=== PATIENT | female | born 1965 | race Caucasian/White ===

== ENCOUNTER 2022-10-14 05:41 | Inpatient (IN) | payer MEDICARE ==
[2022-10-09 11:04] LABS: ANION GAP 17.9 mmol/L (8-16); CALCIUM 8.8 mg/dL (8.4-10.2); CREATININE, SERUM 0.71 mg/dL (0.57-1.11); POTASSIUM 3.9 mmol/L (3.5-5.1)
[2022-10-14] VITALS (8 sets, daily range): BP systolic 136–162; BP diastolic 74–102; PULSE 76–91; RESP 16–20; TEMP 98.1–98.7; O2SAT 95–97
[~2022-10-14] VITALS: Ht 162.6 cm; Wt 89.4 kg
[~2022-10-14 05:41] MED LIST: LEVOTHYROXINE112 MCG PO; LISINOPRIL10 MG PO; METFORMIN HCL500 MG PO; OZEMPIC0.25 MG/0. SC; VITAMIN D31 ML
[2022-10-14] MEDS ORDERED: LACTATED RINGER'S 1,000 ML ONE (05:51)
[2022-10-14] MEDS ORDERED: CEFAZOLIN SODIUM 2 GM ONE (05:51)
[2022-10-14] MEDS ORDERED: SCOPOLAMINE 1 MG PATCH TOP SCH (07:15)
[2022-10-14] MEDS ORDERED: HYDROMORPHONE 1MG/1ML INJ ONE ×4 (07:16→11:15)
[2022-10-14] MEDS ORDERED: ACETAMINOPHEN 1000 MG/100 ML 100 ML IV ONE ×2 (07:16→11:28)
[2022-10-14] MEDS ORDERED: FIBRIN FROZEN 2 ML SPRAY.GEL TOP ONE (07:30)
[2022-10-14] MEDS ORDERED: BUPIVACAINE 0.25% 30ML SDV ONE (07:33)
[2022-10-14] MEDS ORDERED: SCOPOLAMINE 1 MG PATCH TOP ONE (10:43)
[2022-10-14] MEDS ORDERED: SCOPOLAMINE 1 MG PATCH ONE (10:43)
[2022-10-14] MEDS ORDERED: HYDROMORPHONE 1MG/1ML INJ IV ONE (10:47)
[2022-10-14] MEDS ORDERED: ONDANSETRON HCL INJ 2MG/ML 2ML 2 MG/ML VIAL ONE ×2 (10:58→15:45)
[2022-10-14] MEDS ORDERED: ONDANSETRON HCL INJ 2MG/ML 2ML 2 MG/ML VIAL IV ONE (10:58)
[2022-10-14] MEDS: LACTATED RINGER'S 1,000 ML IV SCH ×3 (12:30→20:21)
[2022-10-14] MEDS: ONDANSETRON HCL INJ 2MG/ML 2ML 2 MG/ML VIAL IV PRN ×2 (12:30→22:01)
[2022-10-14] MEDS: Morphine 2mg Syringe 2 MG/ML SYR IV PRN ×2 (12:31→15:39)
[2022-10-14] MEDS: HYDROCODONE/APAP 7.5MG-325MG 1 EA TAB PO PRN ×2 (12:31→16:42)
[2022-10-14] MEDS ORDERED: ROPIVACAINE 0.5% 5 MG/ML 30 ML SDV ONE (12:55)
[2022-10-14] MEDS ORDERED: MIDAZOLAM HCL 2 MG/2 ML VIAL ONE (13:58)
[2022-10-14] MEDS ORDERED: FENTANYL CITRATE/PF 100MCG/2 ML INJ ONE (13:58)
[2022-10-14] MEDS ORDERED: LIDOCAINE HCL 2% LOCAL INJ 5 ML SDV VIAL INJ ONE (15:45)
[2022-10-14] MEDS ORDERED: ROCURONIUM BROMIDE 10 MG/ML 5ML VIAL IV ONE (15:45)
[2022-10-14] MEDS ORDERED: SEVOFLURANE INHAL SOLN 250 ML PEN BTL ONE (15:45)
[2022-10-14] MEDS ORDERED: PROPOFOL IV EMULSION 10 MG/ML 20 ML VIAL ONE (15:45)
[2022-10-14] MEDS ORDERED: POVIDONE IODINE 0.05% 0.05 % ML PO ONE (15:45)
[2022-10-14] MEDS ORDERED: DEXTROSE 50% SYRINGE 50 ML IV PRN (16:15)
[2022-10-14] MEDS: LISINOPRIL 20 MG TAB PO SCH (16:42)
[2022-10-14] MEDS: HYDROMORPHONE 1MG/1ML INJ IV PRN ×2 (16:46→22:01)
[2022-10-14] MEDS: INSULIN LISPRO 100 UNIT/1 ML 3ML VIAL SQ SCH ×2 (16:58→20:25)
[2022-10-14] MEDS: ENOXAPARIN SOD INJ 40 MG/0.4 ML SYR SC SCH (20:20)
[2022-10-15] VITALS (8 sets, daily range): BP systolic 139–149; BP diastolic 78–92; PULSE 70–87; RESP 17–21; TEMP 97.9–99.5; O2SAT 95–100
[2022-10-15 04:44] LABS: BASOPHILS # (AUTO) 0.1 (0.0-0.1); BASOPHILS % 0.4 % (0.0-1.0); EOSINOPHILS % 0.1 % (0.0-6.0); HEMATOCRIT 40.7 % (34.2-44.1); HEMOGLOBIN 13.3 g/dL (12.0-16.0); LYMPHOCYTES # (AUTO) 2.6 (1.0-3.2); LYMPHOCYTES % 18.7 % (18.0-39.1); MEAN CORPUSCULAR HEMOGLOBIN 30.2 pg (28-32); MEAN CORPUSCULAR HGB CONC 32.7 g/dL (31-35); MEAN CORPUSCULAR VOLUME 92.3 fL (81-99); MONOCYTES # (AUTO) 1.5 (0.2-0.8); MONOCYTES % 10.9 % (4.4-11.3); NEUTROPHILS # (AUTO) 9.8 (2.1-6.9); NEUTROPHILS % 69.3 % (38.7-80.0); PLATELET COUNT 258 x10e3/uL (140-360); RED BLOOD COUNT 4.41 x10e6/uL (3.6-5.1); RED CELL DISTRIBUTION WIDTH 12.4 % (11.7-14.4)
[2022-10-15] MEDS: LACTATED RINGER'S 1,000 ML IV SCH ×3 (04:48→18:04)
[2022-10-15 05:10] LABS: ALBUMIN 3.5 g/dL (3.5-5.0); ALBUMIN/GLOBULIN RATIO 1.1 (0.8-2.0); CALCIUM 8.8 mg/dL (8.4-10.2); CREATININE, SERUM 0.71 mg/dL (0.57-1.11); MAGNESIUM 1.8 MG/DL (1.3-2.1)
[2022-10-15] MEDS: LEVOTHYROXINE SODIUM 25 MCG TABLET PO SCH (06:14)
[2022-10-15] MEDS: LEVOTHYROXINE SODIUM 112 MCG TAB PO SCH (06:14)
[2022-10-15] MEDS: INSULIN LISPRO 100 UNIT/1 ML 3ML VIAL SQ SCH ×4 (07:30→20:29)
[2022-10-15] MEDS: LISINOPRIL 20 MG TAB PO SCH (08:07)
[2022-10-15] MEDS: ENOXAPARIN SOD INJ 40 MG/0.4 ML SYR SC SCH ×2 (08:07→20:36)
[2022-10-15] MEDS: HYDROCODONE/APAP 7.5MG-325MG 1 EA TAB PO PRN ×3 (08:20→18:03)
[2022-10-15] MEDS ORDERED: LEVOTHYROXINE SODIUM 112 MCG TAB PO SCH (09:00)
[2022-10-15 10:22] LABS: CLARITY,URINE CLEAR (CLEAR); COLOR,URINE YELLOW (YELLOW); KETONES,URINE 1+ (NEGATIVE); LEUKOCYTE ESTERASE ,URINE NEGATIVE (NEGATIVE); NITRITE,URINE NEGATIVE (NEGATIVE); PROTEIN,URINE DIPSTICK NEGATIVE (NEGATIVE); URINE UROBILINOGEN 0.2 mg/dL (0.2 - 1)
[2022-10-15 10:29] LABS: EPITHELIAL CELLS,URINE RARE /LPF
[2022-10-15 10:30] LABS: BACTERIA,URINE RARE /HPF; RBC,URINE 0-5 /HPF (0-5); WBC,URINE (MAN) 0-5 /HPF (0-5)
[2022-10-15] MEDS: ONDANSETRON HCL INJ 2MG/ML 2ML 2 MG/ML VIAL IV PRN ×2 (16:30→22:28)
[2022-10-15] MEDS: HYDROMORPHONE 1MG/1ML INJ IV PRN ×2 (16:30→22:28)
[2022-10-16] MEDS: HYDROCODONE/APAP 7.5MG-325MG 1 EA TAB PO PRN ×3 (01:42→09:52)
[2022-10-16] MEDS: LACTATED RINGER'S 1,000 ML IV SCH (02:36)
[2022-10-16 04:39] VITALS: BP 149/77; PULSE 77; RESP 18; TEMP 98.9; O2SAT 96
[2022-10-16 04:51] LABS: BASOPHILS % 0.3 % (0.0-1.0); EOSINOPHILS % 0.2 % (0.0-6.0); HEMATOCRIT 35.9 % (34.2-44.1); HEMOGLOBIN 11.8 g/dL (12.0-16.0); LYMPHOCYTES # (AUTO) 2.8 (1.0-3.2); LYMPHOCYTES % 22.9 % (18.0-39.1); MEAN CORPUSCULAR HEMOGLOBIN 29.6 pg (28-32); MEAN CORPUSCULAR HGB CONC 32.9 g/dL (31-35); MONOCYTES # (AUTO) 1.1 (0.2-0.8); MONOCYTES % 9.1 % (4.4-11.3); NEUTROPHILS # (AUTO) 8.2 (2.1-6.9); NEUTROPHILS % 67.2 % (38.7-80.0); PLATELET COUNT 246 x10e3/uL (140-360); RED BLOOD COUNT 3.99 x10e6/uL (3.6-5.1); RED CELL DISTRIBUTION WIDTH 12.5 % (11.7-14.4)
[2022-10-16 05:14] LABS: ALBUMIN 3.3 g/dL (3.5-5.0); ANION GAP 11.6 mmol/L (8-16); CALCIUM 8.7 mg/dL (8.4-10.2); CREATININE, SERUM 0.65 mg/dL (0.57-1.11); POTASSIUM 3.6 mmol/L (3.5-5.1)
[2022-10-16] MEDS: LEVOTHYROXINE SODIUM 25 MCG TABLET PO SCH (05:54)
[2022-10-16] MEDS: LEVOTHYROXINE SODIUM 112 MCG TAB PO SCH (05:54)
[2022-10-16 06:19] VITALS: PULSE 70; RESP 16; O2SAT 98
[2022-10-16] MEDS: INSULIN LISPRO 100 UNIT/1 ML 3ML VIAL SQ SCH (07:30)
[2022-10-16] MEDS: ENOXAPARIN SOD INJ 40 MG/0.4 ML SYR SC SCH (09:09)
[2022-10-16] MEDS: LISINOPRIL 20 MG TAB PO SCH (09:10)
[2022-10-16 09:17] VITALS: BP 145/86; PULSE 82; RESP 18; TEMP 98; O2SAT 95
[2022-10-16 09:19] VITALS: BP 145/86; PULSE 82; RESP 18; TEMP 98; O2SAT 95
[2022-10-16] MEDS ORDERED: ONDANSETRON HCL 4 MG ORAL DISINTEGRATING TAB PO PRN (14:00)
== END 2022-10-16 10:30 | disposition home or self-care (01) | DRG 621 ==
LOC: OR 05:41 → PACU V 09:02 → MED/SURG 11:45
PROVIDERS: ADMIT Internal Medicine; ATTEND Internal Medicine
PROC: 0DP64CZ Removal of Extraluminal Device from Stomach, Percutaneous Endoscopic Approach (ICD-10-PCS; 2022-10-14)
PROC: 0DNW4ZZ Release Peritoneum, Percutaneous Endoscopic Approach (ICD-10-PCS; 2022-10-14)
PROC: 0D164ZA Bypass Stomach to Jejunum, Percutaneous Endoscopic Approach (ICD-10-PCS; principal; 2022-10-14 07:42)
DX: E66.01 Morbid (severe) obesity due to excess calories (principal); Z68.35 Body mass index [BMI] 35.0-35.9, adult; E78.5 Hyperlipidemia, unspecified; E11.9 Type 2 diabetes mellitus without complications; K66.0 Peritoneal adhesions (postprocedural) (postinfection); Z98.84 Bariatric surgery status; I11.9 Hypertensive heart disease without heart failure; D72.829 Elevated white blood cell count, unspecified
CPT/HCPCS: 36415; 71045; 80048; 80053; 81001; 82948; 83605; 83735; 84100; 85025; 87040; 87086; 93005; 94799; J0696; J1170; J1650; J2001; J2250; J2270; J2405; J2795